=== PATIENT | female | born 1990 | race Caucasian/White ===

== ENCOUNTER 2018-04-15 17:12 | Emergency (ER) | payer SELFPAY ==
[2018-04-15] MEDS ORDERED: Ibuprofen 800 MG TAB ONE (18:22)
== END 2018-04-15 18:20 | disposition home or self-care (01) ==
LOC: BURERS 17:12
DX: K02.9 Dental caries, unspecified (principal); E03.9 Hypothyroidism, unspecified; Z79.899 Other long term (current) drug therapy
CPT/HCPCS: 99282